=== PATIENT | female | born 1970 | race American Indian/Alaskan Native ===

== ENCOUNTER 2019-05-24 09:54 | Observation (INO) | payer OTHER ==
[2019-05-24 11:44] LABS: Basophils % (Auto) 0.6 % (0.0-1.8); Eosinophils # (Auto) 0.1 K/mm3 (0.0-0.4); Hematocrit 38.6 % (30.3-42.9); Hemoglobin 12.1 gm/dl (10.1-14.3); Lymphocytes # (Auto) 1.4 K/mm3 (1.2-5.4); Lymphocytes % (Auto) 18.3 % (13.4-35.0); Mean Corpuscular HGB Conc 31 % (30-34); Mean Corpuscular Volume 74 fl (79-97); Monocytes # (Auto) 0.6 K/mm3 (0.0-0.8); Monocytes % (Auto) 8.4 % (0.0-7.3); Platelet Count 257 K/mm3 (140-440); Red Blood Count 5.19 M/mm3 (3.65-5.03); Red Cell Distribution Width 15.4 % (13.2-15.2)
--- NOTE | 2019-05-24 11:45 | Emergency Department Report ---
ED Psych HPI - General Chief Complaint: Psych Stated Complaint: SI ATTEMPT/PILLS Time Seen by Provider: 05/24/19 10:50 Source: EMS Mode of arrival: Stretcher - History of Present Illness Initial Comments: This is a 49-year-old female nontoxic, well nourished in appearance, no acute signs of distress presents to the ED with c/o of depression with SI. Patient stated she has taken about 25 pills of 50 mg tramadol this morning around 8:30 AM. Patient was brought by EMS and EMS has been called by her boyfriend as she mentioned to him what she did. Patient denies any homicidal ideation. Patient stated she has a lot of stress in her life and is currently depressed. Patient denies any fever, chills, nausea, vomiting, chest pain, shortness of breath, headache or stiff neck. Patient otherwise denies any symptoms. Denies any alcohol consumption. Patient denies any allergies. MD Complaint: suicidal ideation, feels depressed -: This morning Associated Psychiatric Symptoms: depression, suicidal ideation Improves With: none Worsens With: none Associated Symptoms: denies other symptoms. denies: confusion, headache, shor tness of breath, nausea, vomiting, syncope, insomnia Treatments Prior to Arrival: none If Self Harm: admits thoughts of, has acted on plan, intentional overdose - Related Data Home Medications Medication Instructions Recorded Confirmed Last Taken lisinopriL [Zestril] 20 mg PO BID 05/01/14 05/02/15 05/01/15 metFORMIN [Glucophage] 1,000 mg PO BID 05/01/14 05/02/15 05/01/15 Potassium Chloride [Klor-Con 10] 10 meq PO DAILY 05/02/15 05/02/15 05/01/15 Pregabalin [Lyrica] 150 mg PO QHS 05/02/15 05/02/15 04/30/15 Previous Rx's Medication Instructions Recorded Last Taken Type Levothyroxine [Synthroid] 125 mcg PO QAM #90 tablet 05/01/14 05/01/15 Rx glipiZIDE [Glucotrol] 2 mg PO BID #90 tablet 05/01/14 05/01/15 Rx HYDROcodone/APAP 10-325 [[place] 1 each PO Q6HR PRN #20 tablet 05/02/15 Unknown Rx 10/325] Nitrofurantoin [place]/M-Cryst 100 mg PO Q12HR #6 capsule 05/02/15 Unknown Rx [Macrobid CAP] Allergies Allergy/AdvReac Type Severity Reaction Status Date / Time No Known Allergies Allergy Verified 05/01/14 04:22 ED Review of Systems ROS: Stated complaint: SI ATTEMPT/PILLS Other details as noted in HPI Constitutional: denies: chills, fever Eyes: denies: eye pain, eye discharge, vision change ENT: denies: ear pain, throat pain Respiratory: denies: cough, shortness of breath, wheezing Cardiovascular: denies: chest pain, palpitations Endocrine: no symptoms reported Gastrointestinal: denies: abdominal pain, nausea, diarrhea Genitourinary: denies: urgency, dysuria, discharge Musculoskeletal: denies: back pain, joint swelling, arthralgia Skin: denies: rash, lesions Neurological: denies: headache, weakness, paresthesias Psychiatric: anxiety, depression, suicidal thoughts. denies: auditory hallucinations, visual hallucinations, homicidal thoughts Hematological/Lymphatic: denies: easy bleeding, easy bruising ED Past Medical Hx - Past Medical History Hx Hypertension: Yes Hx Diabetes: Yes Additional medical history: hyperthyroid - Surgical History Additional Surgical History: Thyroidectomy. . etopic. right knee. lump removed from vocal cords - Social History Smoking Status: Unknown if ever smoked - Medications Home Medications: Home Medications Medication Instructions Recorded Confirmed Last Taken Type Levothyroxine [Synthroid] 125 mcg PO QAM #90 tablet 05/01/14 05/02/15 05/01/15 Rx glipiZIDE [Glucotrol] 2 mg PO BID #90 tablet 05/01/14 05/02/15 05/01/15 Rx lisinopriL [Zestril] 20 mg PO BID 05/01/14 05/02/15 05/01/15 History metFORMIN [Glucophage] 1,000 mg PO BID 05/01/14 05/02/15 05/01/15 History HYDROcodone/APAP 10-325 [[place] 1 each PO Q6HR PRN #20 tablet 05/02/15 Unknown Rx 10/325] Nitrofurantoin [place]/M-Cryst 100 mg PO Q12HR #6 capsule 05/02/15 Unknown Rx [Macrobid CAP] Potassium Chloride [Klor-Con 10] 10 meq PO DAILY 05/02/15 05/02/1505/01/15 History Pregabalin [Lyrica] 150 mg PO QHS 05/02/15 05/02/15 04/30/15 History ED Physical Exam - General Limitations: No Limitations General appearance: alert, in no apparent distress - Head Head exam: Present: atraumatic, normocephalic - Neck Neck exam: Present: normal inspection, full ROM. Absent: tenderness, meningis mus, lymphadenopathy - Respiratory Respiratory exam: Present: normal lung sounds bilaterally. Absent: respiratory distress, wheezes, rales, rhonchi, stridor, chest wall tenderness, accessory muscle use, decreased breath sounds, prolonged expiratory - Cardiovascular Cardiovascular Exam: Present: regular rate, normal rhythm, normal heart sounds. Absent: bradycardia, tachycardia, irregular rhythm, systolic murmur, diastolic murmur, rubs, gallop - GI/Abdominal GI/Abdominal exam: Present: soft. Absent: distended, tenderness - Extremities Exam Extremities exam: Present: normal inspection, full ROM, normal capillary refill. Absent: tenderness - Back Exam Back exam: Present: normal inspection, full ROM. Absent: tenderness, CVA tenderness (R), CVA tenderness (L), muscle spasm, paraspinal tenderness, vertebral tenderness, rash noted - Neurological Exam Neurological exam: Present: alert, oriented X3, normal gait - Psychiatric Psychiatric exam: Present: depressed, anxious, suicidal ideation. Absent: agitated, flat affect, manic, homicidal ideation ED Course Vital Signs 05/24/19 05/24/19 10:51 11:22 Temperature 98.6 F Pulse Rate 102 H 102 H Respiratory 18 18 Rate Blood Pressure 250/143 Blood Pressure 250/143 250/143 [Right] O2 Sat by Pulse 98 98 Oximetry - Reevaluation(s) Reevaluation #1: 05/24/19 11:44 Patient is speaking in full sentences with no signs of distress noted. Reevaluation #2: 05/24/19 11:49 As per Alessandra Garcia RN, poison control stated that if GENETIC SUPERVISOR or wrist or depression patient can be given Narcan or if patient develops seizures up to 10 hours patient can receive benzodiazepines. Furthermore patient must have a minimal of 10 hour observations. - Consultations Consultation #1: 05/24/19 11:52 Patient has been consulted with Rasheed Turner about patient history, physical exam, and labs and agrees for medical admission. ED Medical Decision Making - Lab Data Result diagrams: 05/24/19 11:27 05/24/19 11:27 - Medical Decision Making This is a 49-year-old female that presents with overdose, hypertensive and tachycardia, depression and SI. Patient is currently stable and was examined by me. Patient is medically admitted for overdose as well as uncontrolled hypertension tachycardia. Labs has been obtained. EKG shows prolonged VT interval. Patient consulted with Dr. Lin. Poison control states that patient needs to be observed for minimal of 10 hours. If develops seizures up to 10 hours work and use benzodiazepines. If GENETIC SUPERVISOR depressant we can also use Narcan as per poison control. Patient is admitted with Dr. Dunlap (hospitalist). At time of admission, the patient does not seem toxic or ill in appearance. No acute signs of distress noted. Patient agrees to admission treatment plan of care. No further questions noted by the patient. Critical care attestation.: If time is entered above; I have spent that time in minutes in the direct care of this critically ill patient, excluding procedure time. ED Disposition Clinical Impression: Suicidal ideation Depression Qualifiers: Depression Type: other depression Qualified Code(s): F32.89 - Other specified depressive episodes HTN (hypertension) Qualifiers: Hypertension type: unspecified Qualified Code(s): I10 - Essential (primary) hypertension Overdose Qualifiers: Encounter type: initial encounter Injury intent: intentional self-harm Qualified Code(s): T50.902A - Poisoning by unspecified drugs, medicaments and biological substances, intentional self-harm, initial encounter Disposition: DC-09 OP ADMIT IP TO THIS HOSP Is pt being admited?: Yes Condition: Stable
[2019-05-24 11:56] LABS: Bilirubin,Urine NEG (Negative); Blood,Urine MOD (Negative); Color,Urine Straw (Yellow); Urobilinogen,Urine < 2.0 mg/dL (<2.0)
[2019-05-24 11:57] LABS: Alanine Aminotransferase 17 units/L (7-56); Albumin 4.2 g/dL (3.9-5); BUN/Creatinine Ratio 14; Blood Urea Nitrogen 11 mg/dL (7-17); Calcium 9.4 mg/dL (8.4-10.2); Hemolysis Index 3
[2019-05-24 12:01] LABS: Amphetamine Screen,Urine PRESUMPTIVE NEGATIVE; Benzodiazepines Screen,Urine PRESUMPTIVE NEGATIVE; Cannabinoid Screen,Urine PRESUMPTIVE NEGATIVE; Cocaine Screen,Urine PRESUMPTIVE NEGATIVE; Methadone Screen,Urine PRESUMPTIVE NEGATIVE; Opiate Screen,Urine PRESUMPTIVE NEGATIVE
--- NOTE | 2019-05-24 12:21 | XRay Report ---
CHEST 2 VIEWS INDICATION / CLINICAL INFORMATION: HTN. COMPARISON: None available. FINDINGS: SUPPORT DEVICES: None. HEART / MEDIASTINUM: Borderline cardiomegaly with left ventricular configuration. LUNGS / PLEURA: No significant pulmonary or pleural abnormality. No pneumothorax. ADDITIONAL FINDINGS: No significant additional findings. IMPRESSION: 1. No acute findings. Signer Name: Dutch Cheek MD Signed: 05/24/2019 12:16 PM Workstation Name: [id number]
--- NOTE | 2019-05-24 13:50 | History and Physical Report ---
History of Present Illness Chief complaint: I took some pills History of present illness: 49-year-old female with morbid obesity, obesity hypoventilation syndrome, hypertension, diabetes, hypothyroidism, depression who presents to ED for evaluation patient states that she took approximately 25 tramadol 50mg pills this morning around 0830 hrs. in an attempt to take her own life. Patient acknowledges multiple stressors in her life. Patient acknowledges feeling helpless, hopeless. EMS notified and arrived upon arrival the patient was found to be in distress and transported to [facility]. Patient seen and evaluated in the emergency department. Patient lab and imaging studies reviewed. Patient is tearful at time of exam. Patient found to have accelerated hypertension. Patient placed on 1013 for suicide attempt. Mental health consulted in the emergency department. Patient placed in observation status and admitted to medical floor for medical stabilization and psychiatric evaluation. Patient denies any fever, chills, nausea, vomiting, chest pain, shortness of breath, headache, prolonged travel/immobility, unilateral leg swelling, shortness of breath, individual/family history of D VT/PE/bleeding/blood clotting disorders. Past History Past Medical History: diabetes, hypertension, hypothyroidism, other (see hpi) Past Surgical History: , thyroidectomy Social history: single. denies: smoking, alcohol abuse, prescription drug abuse Family history: diabetes, hypertension Medications and Allergies Allergies Allergy/AdvReac Type Severity Reaction Status Date / Time No Known Allergies Allergy Verified 05/01/14 04:22 Home Medications Medication Instructions Recorded Confirmed Last Taken Type Levothyroxine [Synthroid] 125 mcg PO QAM #90 tablet 05/01/14 05/24/19 05/01/15 Rx glipiZIDE [Glucotrol] 2 mg PO BID #90 tablet 05/01/14 05/24/19 05/01/15 Rx lisinopriL [Zestril] 20 mg PO DAILY 05/01/14 05/24/19 05/01/15 History metFORMIN [Glucophage] 1,000 mg PO BID 05/01/14 05/24/19 05/01/15 History HYDROcodone/APAP 10-325 [[place] 1 each PO Q6HR PRN #20 tablet 05/02/15 05/24/19 Unknown Rx 10/325] Potassium Chloride [Klor-Con 10] 20 meq PO DAILY 05/02/15 05/24/19 05/01/15 History Fenofibrate 145 mg PO DAILY 05/24/19 05/24/19 Unknown History Januvia 100 mg PO DAILY 05/24/19 05/24/19 Unknown History traMADoL 50 mg PO Q6H PRN 05/24/19 05/24/19 Unknown History Review of Systems Constitutional: no weight loss, no weight gain, no fever, no chills Ears, nose, mouth and throat: no ear discharge, no tinnitis, no decreased hearing, no nose pain, no nasal congestion, no nasal discharge Breasts: no change in shape, no swelling, no mass Cardiovascular: no chest pain, no orthopnea, no palpitations, no syncope Respiratory: no cough, no excessive sputum, no hemoptysis, no dyspnea on exertion Gastrointestinal: no nausea, no vomiting, no diarrhea, no constipation, no change in bowel habits, no hematemesis Genitourinary Female: no pelvic pain, no flank pain, no menorrhagia, no dysuria, no urinary frequency, no stress incontinence Rectal: no pain, no incontinence, no bleeding Musculoskeletal: no neck stiffness, no shooting arm pain, no arm numbness/tingling, no low back pain, no leg numbness/tingling Integumentary: no rash, no pruritis, no redness, no sores, no boils Neurological: no weakness, no parathesias, no numbness, no seizures, no syncope, no tremors Psychiatric: sleep disturbances, insomnia, suicidal ideation, depression, hopelessness, anhedonia, difficulties concentrating, no anxiety Endocrine: no cold intolerance, no heat intolerance, no polyphagia, no excessive thirst, no polydipsia, no polyuria, no excessive sweating Hematologic/Lymphatic: no easy bruising, no easy bleeding, no lymphadenopathy Allergic/Immunologic: no urticaria, no allergic rhinitis, no anaphylaxis, no angioedema Exam - Constitutional Vitals: Temp Pulse Resp BP Pulse Ox 98.6 F 80 18 181/107 98 05/24/19 10:51 05/24/19 13:23 05/24/19 13:23 05/24/19 13:23 05/24/19 13:23 General appearance: Present: mild distress, obese - EENT Eyes: Present: PERRL ENT: hearing intact, clear oral mucosa - Neck Neck: Present: supple, normal ROM - Respiratory Respiratory effort: normal Respiratory: bilateral: CTA - Cardiovascular Heart Sounds: Present: S1 & S2. Absent: rub, click - Extremities Extremities: pulses symmetrical, No edema Peripheral Pulses: within normal limits - Abdominal General gastrointestinal: Present: soft, non-tender, non-distended, normal bowel sounds Female genitourinary: Present: normal - Integumentary Integumentary: Present: clear, warm, dry - Musculoskeletal Musculoskeletal: gait normal, strength equal bilaterally - Psychiatric Psychiatric: appropriate mood/affect, intact judgment & insight, depressed - Neurologic Neurologic: CNII-XII intact, moves all extremities Results - Labs CBC & Chem 7: 05/24/19 11:27 05/24/19 11:27 Labs: Abnormal lab results 05/24/19 05/24/19 05/24/19 Range/Units 11: 11: 11:27 RBC 5.19 H (3.65-5.03) M/mm3 MCV 74 L (79-97) fl MCH 23 L (28-32) pg RDW 15.4 H (13.2-15.2) % [place] % (Auto) 8.4 H (0.0-7.3) % Seg Neutrophils % 71.7 H (40.0-70.0) % Carbon Dioxide 20 L (22-30) mmol/L Glucose 269 H (65-100) mg/dL Urine WBC (Auto) (0.0-6.0) /HPF Salicylates < 0.3 L (2.8-20.0) mg/dL Acetaminophen (10.0-30.0) ug/mL 05/24/19 05/24/19 Range/Units 11:27 11:30 RBC (3.65-5.03) M/mm3 MCV (79-97) fl MCH (28-32) pg RDW (13.2-15.2) % [place] % (Auto) (0.0-7.3) % Seg Neutrophils % (40.0-70.0) % Carbon Dioxide (22-30) mmol/L Glucose (65-100) mg/dL Urine WBC (Auto) 9.0 H (0.0-6.0) /HPF Salicylates (2.8-20.0) mg/dL Acetaminophen < 5.0 L (10.0-30.0) ug/mL Assessment and Plan - Patient Problems (1) Malignant hypertension Current Visit: Yes Status: Acute Plan to address problem: Monitor BP every shift, IV hydralazine as needed for systolic blood pressure greater than 160, continue medical management. (2) Obesity hypoventilation syndrome Current Visit: Yes Status: Acute Plan to address problem: Supplemental oxygen, nebulizer therapy, noninvasive positive pressure ventilation as clinically indicated, pulse oximetry. (3) Morbid obesity with BMI of 50.0-59.9, adult Current Visit: Yes Status: Acute Plan to address problem: Balanced diet, increase physical activity at time of discharge, outpatient bariatric surgery evaluation (4) Overdose Current Visit: Yes Status: Acute Qualifiers: Encounter type: initial encounter Injury intent: intentional self-harm Qualified Code(s): T50.902A - Poisoning by unspecified drugs, medicaments and biological substances, intentional self-harm, initial encounter Plan to address problem: Patient placed on 1013, psychiatry consulted, supportive care. Poison control notified in ED. (5) Suicidal ideation Current Visit: Yes Status: Acute Plan to address problem: Mental health consulted in ED. Patient placed on 1013. (6) DVT prophylaxis Current Visit: Yes Status: Acute Plan to address problem: SCD to bilateral lower extremity, patient ambulatory.
[2019-05-24] MEDS ORDERED: ONDANSETRON 4 MG/2 ML INJ IV PRN (13:59)
[2019-05-24] MEDS ORDERED: ACETAMINOPHEN 325 MG TAB PO PRN (13:59)
[2019-05-24] MEDS ORDERED: ALBUTEROL 2.5 MG/3 ML NEBU IH PRN (13:59)
[2019-05-24] MEDS ORDERED: DEXTROSE 50% IN WATER (25GM) 50 ML SYRINGE IV PRN (14:03)
[2019-05-24] MEDS: INSULIN LISPRO 100 UNIT/ML SUB-Q SCH (17:51)
[2019-05-24] MEDS: hydrALAZINE 20 MG/1 ML INJ IV PRN ×2 (18:37→22:19)
[2019-05-24] MEDS: FAMOTIDINE 20 MG/2 ML INJ IV SCH (22:11)
[2019-05-24] MEDS: LISINOPRIL 20 MG TAB PO SCH (22:13)
[2019-05-25] MEDS: INSULIN LISPRO 100 UNIT/ML SUB-Q SCH ×3 (00:39→12:26)
[2019-05-25] MEDS ORDERED: LEVOTHYROXINE 125 MCG TAB PO SCH (06:00)
[2019-05-25] MEDS ORDERED: POTASSIUM CHLORIDE ER 10 MEQ TAB PO SCH (10:00)
[2019-05-25] MEDS ORDERED: NON-FORMULARY EACH (Potassium Chloride [Klor-Con 10] 10 MEQ) PO SCH (10:00)
[2019-05-25] MEDS: FAMOTIDINE 20 MG/2 ML INJ IV SCH (10:30)
[2019-05-25] MEDS: LISINOPRIL 20 MG TAB PO SCH (10:32)
--- NOTE | 2019-05-25 11:35 | Consultation ---
History of Present Illness - Reason for Consult Consult date: 05/25/19 Reason for consult: OD Requesting physician: ZACH LEWIS - Chief Complaint Chief complaint: I took some pills - History of Present Psychiatric Illness The patient is a 49-year-old female with history of morbid obesity, obesity hypo ventilation syndrome, hypertension, diabetes, hypothyroidism, depression who was admitted via the ED after she took approximately 25 tramadol 50mg pills in an attempt to take her own life. Psychiatry consult requested to evaluate patient and recommend disposition. Patient seen with Tool/Die Maker at bedside this morning. The patient is alert, fully oriented, calm and pleasant. She reports that she was overwhelmed with several stressors including "boyfriend problems and financial stress" She feels fine and hopeful this morning as she is expecting a Check later today and her Short Term Disability starts on Wednesday. Patient describes a good and stable mood, denies being depressed or excessively nervous. Patient eats and sleeps well. Patient denies panic attacks, recurrent nightmares or flashbacks. Patient denies symptoms suggestive of OCD or PTSD. Patient denies hallucinations, paranoia, thought interference and no features suggestive of hypomania or eriberto. She completely denies suicidal or homicidal thoughts. She declined medication adjustment. PAST PSYCHIATRIC HISTORY: Diagnoses: Patient reports none Suicide attempts or Self-harm behavior: Patient denies Prior psychiatric hospitalizations: Patient denies Substance Abuse history: Patient denies Previous psychiatric medications tried: n/a Outpatient treatment: none PAST MEDICAL HISTORY: DM, HTN, Hypothyrodism Family Psychiatric History None reported or documented SOCIAL HISTORY Marital Status: Living Arrangements: with Partner Employment Status: Employed Access to guns/weapons: Patient denies Education: Some College History of Abuse: Patient denies Legal History: Patient denies REVIEW OF SYSTEMS Constitutional: Negative for weight loss ENT: Negative for stridor Respiratory: Negative for cough or hemoptysis All other systems reviewed and are negative MENTAL STATUS General Appearance and Behavior: age appropriate, good eye contact, cooperative with questioning and polite Cooperation: Cooperative Psychomotor Behavior: within normal limits Mood: OK Affect and affective range: Congruent with stated mood Thought Process: Fluent/Logical and Goal-directed Thought Content: Within reality Speech: Normal volume and Regular rate and rhythm Intellectual Functioning Average Suicidal Ideation: Denies SI Homicidal Ideation: Denies HI Impulse Control: intact Insight and Judgment: normal insight and judgment Memory: Normal Attention: Normal Orientation: alert and oriented DIAGNOSIS: Adjustment disorder with mixed disturbance of emotions and conduct RECOMMENDATIONS MEDICATIONS: Patient declined medication adjustments PSYCHOTHERAPY: Supportive psychotherapy provided MEDICAL: Per primary team COKE INSPECTOR: Becky POPE DISPOSITION: Per primary team, no indication for acute inpatient psychiatric hospitalization at this time LEGAL STATUS: 1013 rescinded FOLLOW-UP: Will sign off The patient agreed on the treatment plan, understood the risk, benefit, alternative treatment, potential consequence of no treatment, and gave informed consent. Please contact with any questions and/or concerns. Medications and Allergies Allergies Allergy/AdvReac Type Severity Reaction Status Date / Time No Known Allergies Allergy Verified 05/01/14 04:22 Home Medications Medication Instructions Recorded Confirmed Last Taken Type Levothyroxine [Synthroid] 125 mcg PO QAM #90 tablet 05/01/14 05/24/19 05/01/15 Rx glipiZIDE [Glucotrol] 2 mg PO BID #90 tablet 05/01/14 05/24/19 05/01/15 Rx lisinopriL [Zestril] 20 mg PO DAILY 05/01/14 05/24/19 05/01/15 History metFORMIN [Glucophage] 1,000 mg PO BID 05/01/14 05/24/19 05/01/15 History HYDROcodone/APAP 10-325 [[place] 1 each PO Q6HR PRN #20 tablet 05/02/15 05/24/19 Unknown Rx 10/325] Potassium Chloride [Klor-Con 10] 20 meq PO DAILY 05/02/15 05/24/19 05/01/15 History Fenofibrate 145 mg PO DAILY 05/24/19 05/24/19 Unknown History Januvia 100 mg PO DAILY 05/24/19 05/24/19 Unknown History traMADoL 50 mg PO Q6H PRN 05/24/19 05/24/19 Unknown History Active Meds: Active Medications Acetaminophen (Tylenol) 650 mg PO Q4H PRN PRN Reason: Pain MILD(1-3)/Fever >100.5/LEÓN Last Admin: 05/25/19 06:08 Dose: 650 mg Documented by: Albuterol (Proventil) 2.5 mg IH Q4HRT PRN PRN Reason: Shortness Of Breath Dextrose (D50w (25gm) Syringe) 50 ml IV Q30MIN PRN; Protocol PRN Reason: Hypoglycemia Famotidine (Pepcid) 20 mg IV BID [facility] Last Admin: 05/25/19 10:30 Dose: 20 mg Documented by: Hydralazine HCl (Apresoline) 10 mg IV Q6HR PRN PRN Reason: HTN SBP>160 Last Admin: 05/24/19 22:19 Dose: 10 mg Documented by: Insulin Human Lispro (Humalog) 0 unit SUB-Q Q6HR [facility]; Protocol Last Admin: 05/25/19 06:04 Dose: 3 unit Documented by: Levothyroxine Sodium (Synthroid) 125 mcg PO DAILY@0600 [facility] Last Admin: 05/25/19 06:04 Dose: 125 mcg Documented by: Lisinopril (Zestril) 20 mg PO BID [facility] Last Admin: 05/25/19 10:32 Dose: 20 mg Documented by: Ondansetron HCl (Zofran) 4 mg IV Q8H PRN PRN Reason: Nausea And Vomiting Last Admin: 05/24/19 18:44 Dose: 4 mg Documented by: Potassium Chloride (K-Dur) 10 meq PO QDAY [facility] Last Admin: 05/25/19 10:30 Dose: 10 meq Documented by: Sodium Chloride (Sodium Chloride Flush Syringe 10 Ml) 10 ml IV BID [facility] Last Admin: 05/25/19 10:30 Dose: 10 ml Documented by: Sodium Chloride (Sodium Chloride Flush Syringe 10 Ml) 10 ml IV PRN PRN PRN Reason: LINE FLUSH Mental Status Exam - Vital signs Last Vital Signs Temp 98.4 F 05/25/19 07:30 Pulse 79 05/25/19 10:32 Resp 17 05/25/19 07:30 BP 127/58 05/25/19 10:32 Pulse Ox 96 05/25/19 05:47 Results Result Diagrams: 05/24/19 11:27 05/24/19 11:27 Abnormal lab results 05/24/19 05/24/19 05/24/19 Range/Units 11:27 11:27 11:27 RBC 5.19 H (3.65-5.03) M/mm3 MCV 74 L (79-97) fl MCH 23 L (28-32) pg RDW 15.4 H (13.2-15.2) % [place] % (Auto) 8.4 H (0.0-7.3) % Seg Neutrophils % 71.7 H (40.0-70.0) % Carbon Dioxide 20 L (22-30) mmol/L Glucose 269 H (65-100) mg/dL POC Glucose (70-105) Urine WBC (Auto) (0.0-6.0) /HPF Salicylates < 0.3 L (2.8-20.0) mg/dL Acetaminophen (10.0-30.0) ug/mL 05/24/19 05/24/19 05/24/19 Range/Units 11:27 11:30 15:10 RBC (3.65-5.03) M/mm3 MCV (79-97) fl MCH (28-32) pg RDW (13.2-15.2) % [place] % (Auto) (0.0-7.3) % Seg Neutrophils % (40.0-70.0) % Carbon Dioxide (22-30) mmol/L Glucose (65-100) mg/dL POC Glucose 240 H (70-105) Urine WBC (Auto) 9.0 H (0.0-6.0) /HPF Salicylates (2.8-20.0) mg/dL Acetaminophen < 5.0 L (10.0-30.0) ug/mL 05/24/19 05/25/19 05/25/19 Range/Units 17:34 00:42 06:01 RBC (3.65-5.03) M/mm3 MCV (79-97) fl MCH (28-32) pg RDW (13.2-15.2) % [place] % (Auto) (0.0-7.3) % Seg Neutrophils % (40.0-70.0) % Carbon Dioxide (22-30) mmol/L Glucose (65-100) mg/dL POC Glucose 249 H 234 H 200 H (70-105) Urine WBC (Auto) (0.0-6.0) /HPF Salicylates (2.8-20.0) mg/dL Acetaminophen (10.0-30.0) ug/mL 05/25/19 Range/Units 07:30 RBC (3.65-5.03) M/mm3 MCV (79-97) fl MCH (28-32) pg RDW (13.2-15.2) % [place] % (Auto) (0.0-7.3) % Seg Neutrophils % (40.0-70.0) % Carbon Dioxide (22-30) mmol/L Glucose (65-100) mg/dL POC Glucose 187 H (70-105) Urine WBC (Auto) (0.0-6.0) /HPF Salicylates (2.8-20.0) mg/dL Acetaminophen (10.0-30.0) ug/mL All other labs normal.
[2019-05-25 11:50] VITALS: BP 124/58
--- NOTE | 2019-05-25 12:17 | Discharge Summary ---
Providers - Providers Date of Admission: 05/25/19 10:22 Date of discharge: 05/25/19 Attending physician: KIMBERLY BURROUGHS [facility] Condition: Stable Hospital course: Patient is a 49-year-old woman with a history of obesity, obesity hypoventilation syndrome, hypertension, diabetes, hypothyroidism and depression who presents to ED for evaluation patient states that she took approximately 25 tramadol 50mg pills this morning in an attempt to take her own life. She was seen by psychiatrist who rescinded the 1013. She was treated for uncontrolled hypertension but that has resolved. She denies SI and remorseful. Discharge Diagnoses: Intentional Overdose Suicidal ideation Malignant hypertension Obesity hypoventilation syndrome Morbid obesity with BMI of 53 Disposition: DC-01 TO HOME OR SELFCARE Time spent for discharge: 35 min Core Measure Documentation - Palliative Care Palliative Care/ Comfort Measures: Not Applicable - Core Measures Any of the following diagnoses?: none - VTE Discharge Requirements Deep Vein Thrombosis/Pulmonary Embolism Present on Admission: No Has pt received <5 days of overlap therapy or INR<2.0: No Anticoagulant overlap therapy prescribed at discharge: No Contraindication No Overlap Therapy order at DC: Not Indicated Exam - Physical Exam Narrative exam: Gen: WDWN, NAD, Awake, Alert, Orientated HEENT: NCAT, EOMI, PERRL, OP Clear Neck: supple, no adenopathy, no thyromegaly, no JVD CVS/Heart: RRR, normal S1S2, pulses present bilaterally Chest/Lungs: CTA B, Symmetrical chest expansion, good air entry bilaterally GI/Abdomen: soft, NTND, good bowel sounds, no guarding or rebound /Bladder: no suprapubic tenderness, no CVA or paraspinal tenderness Extermity/Skin: no c/c/e, no obvious rash MSK: FROM x 4 Neuro: CN 2-12 grossly intact, no new focal deficits Psych: calm - Constitutional Vitals: Temp Pulse Resp BP Pulse Ox 98.4 F 81 18 124/58 96 05/25/19 07:30 05/25/19 10:32 05/25/19 10:32 05/25/19 10:32 05/25/19 10:32 Plan Activity: no driving until cleared by PCP, other (no strenous activity unless cleared by PCP) Diet: low salt, diabetic Follow up with: CARBUCCIA,SKY, MD [Staff Physician] - 7 Days VIRGEN MURRIETA MD [Staff Physician] - 7 Days
[2019-05-25 15:14] LABS: Basophils % (Auto) 0.6 % (0.0-1.8); Eosinophils # (Auto) 0.1 K/mm3 (0.0-0.4); Eosinophils % (Auto) 1.5 % (0.0-4.3); Hematocrit 35.9 % (30.3-42.9); Hemoglobin 11.3 gm/dl (10.1-14.3); Lymphocytes # (Auto) 1.8 K/mm3 (1.2-5.4); Lymphocytes % (Auto) 23.3 % (13.4-35.0); Mean Corpuscular HGB Conc 32 % (30-34); Mean Corpuscular Volume 74 fl (79-97); Monocytes # (Auto) 0.7 K/mm3 (0.0-0.8); Monocytes % (Auto) 8.8 % (0.0-7.3); Platelet Count 232 K/mm3 (140-440); Red Blood Count 4.84 M/mm3 (3.65-5.03); Red Cell Distribution Width 15.3 % (13.2-15.2)
[2019-05-25 15:31] LABS: Alanine Aminotransferase 16 units/L (7-56); Albumin 3.7 g/dL (3.9-5); BUN/Creatinine Ratio 11; Blood Urea Nitrogen 10 mg/dL (7-17); Hemolysis Index 51
== END 2019-05-25 16:23 | disposition home or self-care (01) ==
LOC: ED 09:54 → 3A 13:59 → INTOOBSV 05-25 10:22 → OBSVTOIN 05-25 10:22
PROVIDERS: ADMIT Internal Medicine; ATTEND Internal Medicine
DX: T40.4X2A Poisoning by other synthetic narcotics, intentional self-harm, initial encounter (principal); T14.91XA Suicide attempt, initial encounter; I10 Essential (primary) hypertension; E66.2 Morbid (severe) obesity with alveolar hypoventilation; E11.9 Type 2 diabetes mellitus without complications; E03.9 Hypothyroidism, unspecified; F32.9 Major depressive disorder, single episode, unspecified; Z90.89 Acquired absence of other organs; Z79.899 Other long term (current) drug therapy; Z79.84 Long term (current) use of oral hypoglycemic drugs; Z68.43 Body mass index [BMI] 50.0-59.9, adult; X83.8XXA Intentional self-harm by other specified means, initial encounter; Y93.89 Activity, other specified; Y92.89 Other specified places as the place of occurrence of the external cause
CPT/HCPCS: 36415; 71046; 80053; 80307; 81001; 82140; 82550; 82962; 84703; 85025; 87086; 93005; 93010; 96372; 96374; 96375; 96376; 99284; G0378; J0360; J2405; 80320; G0480; J1815

== ENCOUNTER 2020-04-15 17:02 | Emergency (ER) | payer OTHER ==
--- NOTE | 2020-04-15 19:47 | Emergency Department Report ---
Blank Doc - Documentation Documentation: 50-year-old F [place] female with a previous history of reported gallstones was diagnosed 9 years ago which she has been able to appropriate diet presents emerge department complaining of progressively worsening in her symptoms over the last week states she is been unable to keep food down this week due to the nausea, vomiting, pain episodes. This initial assessment/diagnostic orders/clinical plan/treatment(s) is/are subject to change based on patients health status, clinical progression and re- assessment by fellow clinical providers in the ED. Further treatment and workup at subsequent clinical providers discretion. Patient/guardian urged not to elope from the ED as their condition may be serious if not clinically assessed and managed. Initial orders include: Labs in the right upper quadrant ultrasound
[2020-04-15 20:35] LABS: Basophils # (Auto) 0.1 K/mm3 (0.0-0.1); Basophils % (Auto) 0.5 % (0.0-1.8); Eosinophils # (Auto) 0.2 K/mm3 (0.0-0.4); Eosinophils % (Auto) 1.7 % (0.0-4.3); Hematocrit 36.8 % (30.3-42.9); Hemoglobin 11.7 gm/dl (10.1-14.3); Lymphocytes # (Auto) 2.9 K/mm3 (1.2-5.4); Mean Corpuscular HGB Conc 32 % (30-34); Mean Corpuscular Volume 74 fl (79-97); Monocytes # (Auto) 1.1 K/mm3 (0.0-0.8); Monocytes % (Auto) 9.7 % (0.0-7.3); Platelet Count 257 K/mm3 (140-440); Red Blood Count 4.96 M/mm3 (3.65-5.03); Red Cell Distribution Width 15.2 % (13.2-15.2)
[2020-04-15 21:57] LABS: BUN/Creatinine Ratio 14; Blood Urea Nitrogen 11 mg/dL (7-17); Calcium 9.2 mg/dL (8.4-10.2)
[2020-04-15 21:58] LABS: Alanine Aminotransferase 19 units/L (7-56); Albumin 3.8 g/dL (3.9-5); Bilirubin,Direct 0.2 mg/dL (0-0.2)
[2020-04-16] MEDS ORDERED: DICYCLOMINE 20 MG/2 ML INJ IM ONE (02:54)
[2020-04-16] MEDS ORDERED: SODIUM CHLORIDE 0.9% 1000 ML 1,000 ML IV ONE (02:54)
[2020-04-16] MEDS ORDERED: MORPHINE 4 MG/1 ML INJ IV ONE (02:54)
[2020-04-16] MEDS ORDERED: ONDANSETRON 4 MG/2 ML INJ IV ONE (02:54)
--- NOTE | 2020-04-16 03:05 | Ultrasound Report ---
LIMITED RUQ ABDOMINAL ULTRASOUND INDICATION: Right upper quadrant pain. COMPARISON: No relevant prior imaging study available. FINDINGS: Pancreas: Visualized portions show no significant abnormality. Abdominal Aorta: No significant abnormality. IVC: No significant abnormality. Liver: The liver measures 15 cm in length. Diffusely increased hepatic echogenicity which typically i ndicates hepatic steatosis.. Normal hepatopedal blood flow in the main portal vein. Gallbladder: Multiple mobile stones in the gallbladder without wall thickening or distention. Bile ducts: No significant abnormality. Common bile duct measures 4 mm. Right kidney: No significant abnormality visualized.. Free fluid: None. Additional Findings: None. IMPRESSION: 1. Hepatic steatosis. 2. Cholelithiasis without evidence of acute cholecystitis. Signer Name: Yoel Joe MD Signed: 04/16/2020 3:01 AM Workstation Name: [id number]
--- NOTE | 2020-04-16 03:26 | Emergency Department Report ---
ED General Adult HPI - General Chief complaint: Abdominal Pain Stated complaint: POSS GALLSTONES Time Seen by Provider: 04/16/20 01:14 Source: patient Mode of arrival: Ambulatory Limitations: No Limitations - History of Present Illness Initial comments: Patient is a 50-year-old female presents emergency room with complaints of nausea, vomiting, diarrhea that began a week ago. She has associated upper abdominal pain which she describes as intermittent contractions. She states that she has a history of gallstones 9 years ago but never saw general surgeon at that time. She denies any fever, dysuria, hematochezia, hematemesis, melena, pus in the stool. She denies any recent travel, recent surgery, recent antibiotics, water from a different source, camping. She has a past medical history of diabetes and hypertension. She states that she took her lisinopril yesterday morning. She denies any allergies to medications. - Related Data Home Medications Medication Instructions Recorded Confirmed Last Taken lisinopriL [Zestril TAB] 20 mg PO DAILY 05/01/14 05/24/19 05/01/15 metFORMIN [Glucophage] 1,000 mg PO BID 05/01/14 05/24/19 05/01/15 Potassium Chloride [Klor-Con 10] 20 meq PO DAILY 05/02/15 05/24/19 05/01/15 Fenofibrate 145 mg PO DAILY 05/24/19 05/24/19 Unknown Januvia 100 mg PO DAILY 05/24/19 05/24/19 Unknown Previous Rx's Medication Instructions Recorded Last Taken Type Levothyroxine [Synthroid] 125 mcg PO QAM #90 tablet 05/01/14 05/01/15 Rx glipiZIDE [Glucotrol] 2 mg PO BID #90 tablet 05/01/14 05/01/15 Rx HYDROcodone/APAP 10-325 [[place] 1 each PO Q6HR PRN #20 tablet 05/02/15 Unknown Rx 10-325 mg TAB] Ondansetron [Zofran Odt] 4 mg PO Q8HR PRN #7 tab.rapdis 04/16/20 Unknown Rx traMADoL [Ultram 50 MG tab] 50 mg PO Q6HR PRN #10 tablet 04/16/20 Unknown Rx Allergies Allergy/AdvReac Type Severity Reaction Status Date / Time No Known Allergies Allergy Verified 05/01/14 04:22 ED Review of Systems ROS: Stated complaint: POSS GALLSTONES Other details as noted in HPI Comment: All other systems reviewed and negative ED Past Medical Hx - Past Medical History Previous Medical History?: Yes Hx Hypertension: Yes Hx Congestive Heart Failure: No Hx Diabetes: Yes Hx Asthma: No Hx COPD: No Hx HIV: No Additional medical history: hyperthyroid - Surgical History Additional Surgical History: Thyroidectomy. . etopic. right knee. lump removed from vocal cords - Social History Smoking Status: Never Smoker Substance Use Type: None - Medications Home Medications: Home Medications Medication Instructions Recorded Confirmed Last Taken Type Levothyroxine [Synthroid] 125 mcg PO QAM #90 tablet 05/01/14 05/24/19 05/01/15 Rx glipiZIDE [Glucotrol] 2 mg PO BID #90 tablet 05/01/14 05/24/19 05/01/15 Rx lisinopriL [Zestril TAB] 20 mg PO DAILY 05/01/14 05/24/19 05/01/15 History metFORMIN [Glucophage] 1,000 mg PO BID 05/01/14 05/24/19 05/01/15 History HYDROcodone/APAP 10-325 [[place] 1 each PO Q6HR PRN #20 tablet 05/02/15 05/24/19 Unknown Rx 10-325 mg TAB] Potassium Chloride [Klor-Con 10] 20 meq PO DAILY 05/02/15 05/24/19 05/01/15 History Fenofibrate 145 mg PO DAILY 05/24/19 05/24/19 Unknown History Januvia 100 mg PO DAILY 05/24/19 05/24/19 Unknown History Ondansetron [Zofran Odt] 4 mg PO Q8HR PRN #7 tab.rapdis 04/16/20 Unknown Rx traMADoL [Ultram 50 MG tab] 50 mg PO Q6HR PRN #10 tablet 04/16/20 Unknown Rx ED Physical Exam - General Limitations: No Limitations General appearance: alert, in no apparent distress - Head Head exam: Present: atraumatic, normocephalic - Eye Eye exam: Present: normal appearance - ENT ENT exam: Present: mucous membranes moist - Respiratory Respiratory exam: Present: normal lung sounds bilaterally. Absent: respiratory distress, wheezes, rales, rhonchi, stridor, chest wall tenderness, accessory muscle use, decreased breath sounds, prolonged expiratory - Cardiovascular Cardiovascular Exam: Present: regular rate, normal rhythm, normal heart sounds. Absent: systolic murmur, diastolic murmur, rubs, gallop - GI/Abdominal GI/Abdominal exam: Present: soft, tenderness (RUQ, epigastric), normal bowel sounds, other (proturbant abdomen, negative murphys sign, no mcburneys point ttp). Absent: distended, guarding, rebound, rigid - Neurological Exam Neurological exam: Present: alert, oriented X3 - Psychiatric Psychiatric exam: Present: normal affect, normal mood - Skin Skin exam: Present: warm, dry, intact ED Course Vital Signs 04/15/20 04/16/20 20:01 03:50 Temperature 98.4 F 97.7 F Pulse Rate 95 H 76 Respiratory 18 17 Rate Blood Pressure 207/109 Blood Pressure 193/91 [Right] O2 Sat by Pulse 98 100 Oximetry ED Medical Decision Making - Lab Data Result diagrams: 04/15/20 19:58 04/15/20 19:58 Lab Results 04/15/20 04/15/20 04/16/20 Range/Units 19:58 19:58 02:18 WBC 11.0 (4.5-11.0) K/mm3 RBC 4.96 (3.65-5.03) M/mm3 Hgb 11.7 (10.1-14.3) gm/dl Hct 36.8 (30.3-42.9) % MCV 74 L (79-97) fl MCH 24 L (28-32) pg MCHC 32 (30-34) % RDW 15.2 (13.2-15.2) % Plt Count 257 (140-440) K/mm3 Lymph % (Auto) 26.0 (13.4-35.0) % Pepin % (Auto) 9.7 H (0.0-7.3) % Eos % (Auto) 1.7 (0.0-4.3) % Baso % (Auto) 0.5 (0.0-1.8) % Lymph # (Auto) 2.9 (1.2-5.4) K/mm3 Pepin # (Auto) 1.1 H (0.0-0.8) K/mm3 Eos # (Auto) 0.2 (0.0-0.4) K/mm3 Baso # (Auto) 0.1 (0.0-0.1) K/mm3 Seg Neutrophils % 62.1 (40.0-70.0) % Seg Neutrophils # 6.8 (1.8-7.7) K/mm3 Sodium 137 (137-145) mmol/L Potassium 4.1 (3.6-5.0) mmol/L Chloride 97.9 L (98-107) mmol/L Carbon Dioxide 29 (22-30) mmol/L Anion Gap 14 mmol/L BUN 11 (7-17) mg/dL Creatinine 0.8 (0.6-1.2) mg/dL Estimated GFR > 60 ml/min BUN/Creatinine Ratio 14 % Glucose 240 H (65-100) mg/dL Calcium 9.2 (8.4-10.2) mg/dL Total Bilirubin 0.30 (0.1-1.2) mg/dL Direct Bilirubin 0.2 (0-0.2) mg/dL Indirect Bilirubin 0.1 mg/dL AST 24 (5-40) units/L ALT 19 (7-56) units/L Alkaline Phosphatase 76 (35-129) units/L Total Protein 7.4 (6.3-8.2) g/dL Albumin 3.8 L (3.9-5) g/dL Albumin/Globulin Ratio 1.1 % Lipase 25 (13-60) units/L Urine Color Yellow (Yellow) Urine Turbidity Clear (Clear) Urine pH 6.0 (5.0-7.0) Ur Specific [place] 1.020 (1.003-1.030) Urine Protein >500 (Negative) mg/dL Urine Glucose (UA) 50 (Negative) mg/dL Urine Ketones Neg (Negative) mg/dL Urine Blood Mod (Negative) Urine Nitrite Neg (Negative) Urine Bilirubin Neg (Negative) Urine Urobilinogen < 2.0 (<2.0) mg/dL Ur Leukocyte Esterase Neg (Negative) Urine WBC (Auto) 4.0 (0.0-6.0) /HPF Urine RBC (Auto) 1.0 (0.0-6.0) /HPF U Epithel Cells (Auto) 1.0 (0-13.0) /HPF Urine Bacteria (Auto) 1+ (Negative) /HPF Urine Mucus Few /HPF - Radiology Data Radiology results: report reviewed Ordering Physician: SKIP BARNEY Date of Service: 04/15/20 Procedure(s): US abdomen limited Accession Number(s): [id number] cc: SKIP BARNEY LIMITED RUQ ABDOMINAL ULTRASOUND INDICATION: Right upper quadrant pain. COMPARISON: No relevant prior imaging study available. FINDINGS: Pancreas: Visualized portions show no significant abnormality. Abdominal Aorta: No significant abnormality. IVC: No significant abnormality. Liver: The liver measures 15 cm in length. Diffusely increased hepatic echogenicity which typically indicates hepatic steatosis.. Normal hepatopedal blood flow in the main portal vein. Gallbladder: Multiple mobile stones in the gallbladder without wall thickening or distention. Bile ducts: No significant abnormality. Common bile duct measures 4 mm. Right kidney: No significant abnormality visualized.. Free fluid: None. Additional Findings: None. IMPRESSION: 1. Hepatic steatosis. 2. Cholelithiasis without evidence of acute cholecystitis. Signer Name: Yoel Joe MD Signed: 04/16/2020 3:01 AM Workstation Name: [id number] Transcribed By: ALAINA Dictated By: Yoel Joe MD Electronically Authenticated By: Yoel Joe MD Signed Date/Time: 04/16/20300 DD/ 9 TD/TT: - Medical Decision Making Patient is a 50-year-old female presents emergency room with complaints of nausea, vomiting, diarrhea that began a week ago. She has associated upper abdominal pain which she describes as intermittent contractions. She states that she has a history of gallstones 9 years ago but never saw general surgeon at that time. She denies any fever, dysuria, hematochezia, hematemesis, melena, pus in the stool. She denies any recent travel, recent surgery, recent antibiotics, water from a different source, camping. She has a past medical history of diabetes and hypertension. She states that she took her lisinopril yesterday morning. She denies any allergies to medications. vitals with elevated BP, pt has history of chronic HTN, she usually takes her medication in the medical staff coordinator, she is not having any symptoms related to her BP, the up to date medical literature does not recommend emergently lowering asymptomatic elevation in blood pressure, pt will be referred to PCP, discussed lifestyle modifications. on exam: RUQ and epigastric ttp, no guarding, no rebound, no rigidity, normal bowel sounds, no peritoneal signs, protuberant abdomen, negative Giles sign, no McBurney's point tenderness. Labs are stable. UA without evidence of UTI. Right upper quadrant ultrasound: 1. Hepatic steatosis. 2. Cholelithiasis without evidence of acute cholecystitis. Patient given morphine, Zofran, Bentyl, 1 L normal saline while in the emergency department and symptoms improved. Patient was able to tolerate p.o. intake while in the ED. She had no further episodes of vomiting or diarrhea while in the emergency department. Symptoms could likely be related to gastroenteritis, could also be related to biliary colic but she has no signs of acute cholecystitis or biliary obstruction. Patient will be referred to GI and general surgery, advised to be reevaluated in the next few days, discussed very strict return precautions. Patient given prescription for tramadol and Zofran. Advised patient to please take medication as prescribed as needed. Increase your water intake. Eat a bland liquid diet and slowly advance your diet as tolerated. Avoid anything sugary or greasy. Follow-up with your primary care doctor. Follow-up with a GI doctor. Follow-up with a general surgeon. Return to emergency room for any new or worsening symptoms including but not limited to worsening pain, fever, unable to tolerate by mouth intake, vomiting blood, etc. please follow-up with a primary care doctor regarding the elevation in your blood pressure during today's visit. Eat a low-sodium/low salt diet. Increase your water intake. Please keep a blood pressure log and take this to the primary care doctor. Incorporate 30 to 60 minutes of aerobic exercise daily. Critical care attestation.: If time is entered above; I have spent that time in minutes in the direct care of this critically ill patient, excluding procedure time. ED Disposition Clinical Impression: Nausea vomiting and diarrhea, Elevated blood pressure reading Abdominal pain Qualifiers: Abdominal location: upper abdomen, unspecified Qualified Code(s): R10.10 - Upper abdominal pain, unspecified Cholelithiasis Qualifiers: Cholelithiasis location: gallbladder Cholecystitis presence: without cholecystitis Biliary obstruction: without biliary obstruction Qualified Code(s): K80.20 - Calculus of gallbladder without cholecystitis without obstruction Disposition: TO HOME OR SELFCARE Is pt being admited?: No Does the pt Need Aspirin: No Condition: Stable Instructions: Abdominal Pain (ED), Gallbladder Eating Plan, Cholelithiasis, Eas y-to-Read, Low-Sodium Eating Plan Additional Instructions: please take medication as prescribed as needed. Increase your water intake. Eat a bland liquid diet and slowly advance your diet as tolerated. Avoid anything sugary or greasy. Follow-up with your primary care doctor. Follow-up with a GI doctor. Follow-up with a general surgeon. Return to emergency room for any new or worsening symptoms including but not limited to worsening pain, fever, unable to tolerate by mouth intake, vomiting blood, etc. please follow-up with a primary care doctor regarding the elevation in your blood pressure during today's visit. Eat a low-sodium/low salt diet. Increase your water intake. Please keep a blood pressure log and take this to the primary care doctor. Incorporate 30 to 60 minutes of aerobic exercise daily. Prescriptions: traMADoL [Ultram 50 MG tab] 50 mg PO Q6HR PRN #10 tablet PRN Reason: Pain , Severe (7-10) Ondansetron [Zofran Odt] 4 mg PO Q8HR PRN #7 tab.rapdis PRN Reason: Nausea And Vomiting Referrals: HERLINDA SHARIF MD [Primary Care Provider] - 2-3 Days SKY LORENZ MD [Staff Physician] - 2-3 Days [facility] [Provider Group] - 2-3 Days [facility] [Provider Group] - 2-3 Days (GI doctor ) VIOLETTA DODD MD [Staff Physician] - 2-3 Days (general surgery) Time of Disposition: 04:18 Print Language: WELSH
[2020-04-16 03:36] LABS: Bacteria,Urine 1+ /HPF (Negative); Bilirubin,Urine NEG (Negative); Blood,Urine MOD (Negative); Color,Urine Yellow (Yellow); Mucus,Urine FEW /HPF; Urobilinogen,Urine < 2.0 mg/dL (<2.0)
[2020-04-16 03:37] LABS: Protein,Urine >500 mg/dL (Negative)
[2020-04-16 07:20] VITALS: BP 163/104
== END 2020-04-16 06:05 | disposition home or self-care (01) ==
LOC: ED 17:02
DX: K80.20 Calculus of gallbladder without cholecystitis without obstruction (principal); R11.2 Nausea with vomiting, unspecified; R19.7 Diarrhea, unspecified; I10 Essential (primary) hypertension; E11.9 Type 2 diabetes mellitus without complications; Z90.89 Acquired absence of other organs; Z98.890 Other specified postprocedural states; Z79.899 Other long term (current) drug therapy
CPT/HCPCS: 36415; 76705; 80048; 80076; 81001; 83690; 85025; 96361; 96372; 96374; 96375; 99284; J0500; J2270; J2405; J7030